=== PATIENT | female | born 1955 | race Caucasian/White ===

== ENCOUNTER 2021-01-27 07:41 | Outpatient (REF) | payer OTHER, SELFPAY ==
[2021-01-27 07:58] LABS: COVID-19 Test Negative (Negative)
== END 2021-01-27 07:42 | disposition home or self-care (01) ==
LOC: HO.LAB 07:41
PROVIDERS: Visit Provider Internal Medicine
DX: Z20.822 Contact with and (suspected) exposure to COVID-19 (principal)
CPT/HCPCS: 36415; 87635; C9803

== ENCOUNTER 2021-08-19 06:33 | Day surgery (SDC) | payer OTHER, SELFPAY ==
[2021-08-12 13:56] VITALS: BMI 24.1
--- NOTE | 2021-08-18 09:36 | HO.ANESPROP2 ---
Documented by User: Yohana Blanco NP 08/18/21 09:37 HPI - Anesthesia Eval Consult details Narrative: 65yo F for Upper Endoscopy PMFSH Past Medical History Medical History Arthritis COVID-19 vaccine series completed Dysphagia GERD (gastroesophageal reflux disease) Peptic ulcer Surgical History Surgical History H/O colonoscopy History of esophagogastroduodenoscopy (EGD) History of Lindsay fundoplication Hx of cosmetic surgery Hx of total hysterectomy Social History Social History Are you a primary customer care voice consultant to a significant other at home: No Do you presently have visiting nurse or other home services: No Patient Tobacco Use Status: Former Tobacco user Quit Date: age 40's Tobacco use type: Cigarette Years Smoked: 30 Use of substances other than those prescribed or required for medical reasons: No Have you been hit, kicked, punched, or otherwise hurt by someone within the past year? If so, by whom?: No Are you DNR?: No Advance Directives Information Provided: Yes (as above noted) Advance Directives on File: No Recently lost weight without trying: No Eating poorly because of decreased appetite: No Nutrition Risks: No Nutritional Risk Poor oral hygiene: No (missing teeth-upper & lower) Meds Allergies Allergy/AdvReac Type Severity Reaction Status Date / Time No Known Allergies Allergy Verified 08/19/21 06:40 Home Medications Medication Instructions Recorded Confirmed Last Taken Type bupropion HCl 150 mg 24 hr tablet, 150 mg PO QAM 08/12/21 08/12/21 Unknown History extended release estradiol 0.075 mg/24 hr 1 patch TOPICAL 2XW 08/12/21 08/12/21 Unknown History semiweekly transdermal patch omeprazole 40 mg capsule,delayed 1 cap PO BID 08/12/21 08/12/21 Unknown History release Exam Exam Date and Time: August 18, 2021 0936 Height,Weight and Vital Signs: Height 5 ft 2 in Weight 59.874 kg Assessment and Plan Assessment Anesthesia Assessment: Chart Reviewed Documented by User: Telma Haley MD 08/19/21 07:46 [facility] Past Medical History Medical History Arthritis COVID-19 vaccine series completed Dysphagia GERD (gastroesophageal reflux disease) Peptic ulcer Surgical History Surgical History H/O colonoscopy History of esophagogastroduodenoscopy (EGD) History of Lindsay fundoplication Hx of cosmetic surgery Hx of total hysterectomy History of Problems with Anesthesia: No Social History Social History Are you a primary customer care voice consultant to a significant other at home: No Do you presently have visiting nurse or other home services: No Patient Tobacco Use Status: Former Tobacco user Quit Date: age 41's Tobacco use type: Cigarette Years Smoked: 30 Use of substances other than those prescribed or required for medical reasons: No Have you been hit, kicked, punched, or otherwise hurt by someone within the past year? If so, by whom?: No Are you DNR?: No Advance Directives Information Provided: Yes (as above noted) Advance Directives on File: No Recently lost weight without trying: No Eating poorly because of decreased appetite: No Nutrition Risks: No Nutritional Risk Poor oral hygiene: No (missing teeth-upper & lower) Meds Allergies Allergy/AdvReac Type Severity Reaction Status Date / Time No Known Allergies Allergy Verified 08/19/21 06:40 Home Medications Medication Instructions Recorded Confirmed Last Taken Type bupropion HCl 150 mg 24 hr tablet, 150 mg PO QAM 08/12/21 08/12/21 Unknown History extended release estradiol 0.075 mg/24 hr 1 patch TOPICAL 2XW 08/12/21 08/12/21 Unknown History semiweekly transdermal patch omeprazole 40 mg capsule,delayed 1 cap PO BID 08/12/21 08/12/21 Unknown History release Exam Airway Mallampati Class: II TM Dist: >3cm Neck ROM: Full Heart: RRR Lungs: CTA Assessment and Plan Assessment Anesthesia Assessment: Anesthesia Plan Discussed Final Anesthetic Review History of Problems with Anesthesia: No NPO: Yes ASA Class: II Final Preanesthetic Review: Meds/Allgs Chart Reviewed, Consent Obtained/Reviewed and Anes Risks/Benef Reviewed Patient Risk: Low Procedure Risk: Intermediate Anesthetic Plan Anesthetic Plan: MAC: Disposition: Standard PACU
[2021-08-19 06:42] VITALS: BP 115/58; PULSE 63; RESP 15; TEMP 36.8; O2SAT 97
[2021-08-19] MEDS: Lactated Ringers 1,000 ML 100 ML IVCONT (06:57)
--- NOTE | 2021-08-19 07:26 | MHC.SHP ---
Pre-Procedural Eval Section A Date of Service: 08/19/21 Section B Chief Complaint: GERD, Dysphagia, Details of Present Illness: see h&p no changes Relevant Family History (Specify if Yes): No Relevant Social History: None Present Medications: see Short Stay Collaborative assessment Medical History: No relevant PMH History of Previous Operations: No relevant previous surgery Allergies: Allergies Allergy/AdvReac Type Severity Reaction Status Date / Time No Known Allergies Allergy Verified 08/19/21 06:40 Review of Systems Sugical H&P ROS: Negative: Constitution, Cardiovascular, Respiratory, Neurological, Psychiatric, Hem-Onc, Allergic/Immunologic, Gastrointestinal, Genitourinary, Musculoskeletal, Integumentary, Endocrine and Eyes/Ears/Nose/Throat Exam Surgical H&P Exam: Normal: HEENT, Normal: Heart, Normal: Lungs, Normal: Extremities, Normal: Abdomen, Normal: Skin and Normal: Neurological Plan I have reviewed the history and physical and performed a pertinent physical examination on my patient. No changes have occurred unless specified.
--- NOTE | 2021-08-19 07:44 | P.BOP_ITS ---
Brief Operative Note Date of Service: 08/19/21 Pre-op diagnosis: dysphagia,gerd Post-op diagnosis: same (hiatal hernia) Procedure: egd Surgeon: Clifton Hankins Anesthesia: MAC Was an Feeder Tender used for this Procedure?: No Estimated blood loss (mL): 2 Pathology: other (bxs antrum egj esophagus 25 cm)
[2021-08-19 07:46] VITALS: BP 84/47; PULSE 66; RESP 16; TEMP 36.2; O2SAT 98
[2021-08-19 08:01] VITALS: BP 112/72; PULSE 63; RESP 17; TEMP 36.2; O2SAT 96
--- NOTE | 2021-08-19 08:18 | OP_ITS ---
SURGEON: Clifton Hankins MD INDICATIONS: Dysphagia and gastroesophageal reflux disease. PREOPERATIVE DIAGNOSIS: POSTOPERATIVE DIAGNOSIS: PROCEDURE PERFORMED: Upper endoscopy with biopsy. ESTIMATED BLOOD LOSS: COMPLICATIONS: ANESTHESIA: ASSISTANTS: SPECIMENS: MEDICATIONS: Monitored anesthesia care. DESCRIPTION OF PROCEDURE: History and physical performed. The risks and benefits of the procedure were explained to the patient. Informed consent was obtained. The patient was placed in the left lateral decubitus position. The Olympus video gastroscope was introduced into the esophagus, stomach, and duodenum. Examination was performed and the scope was removed. She tolerated the procedure well and was taken to recovery area in stable condition. FINDINGS: Esophagus: The esophagus had a sigmoid appearance to it. There was no stricture. Biopsies were obtained from the EG junction and from 25 cm. No esophagitis was identified. There was a moderate-sized hiatal hernia. Stomach: The stomach showed no evidence of masses or ulcers. Antral biopsies were obtained to evaluate for H pylori. There were benign-appearing gastric polyps in the body and fundus measuring less than 10 mm. Biopsies were obtained from two of the polyps. Duodenum: The bulb and second portion were normal. IMPRESSION: Hiatal hernia. RECOMMENDATION: Follow up the biopsy results. MD MARCELINO Ibarra/ERICK / [id number]
== END 2021-08-19 09:03 | disposition home or self-care (01) ==
PROVIDERS: PCP Internal Medicine; Visit Provider Internal Medicine Gastroenterology
PROC: 0DJ08ZZ Inspection of Upper Intestinal Tract, Via Natural or Artificial Opening Endoscopic (ICD-10-PCS; CPT 43235; principal; 2021-08-19 07:30)
DX: K21.9 Gastro-esophageal reflux disease without esophagitis (principal); R13.10 Dysphagia, unspecified; K44.9 Diaphragmatic hernia without obstruction or gangrene; Z83.71 Family history of colonic polyps; Z79.899 Other long term (current) drug therapy
CPT/HCPCS: 43239; 88305; 88342; J3010

== ENCOUNTER 2021-12-27 10:19 | Outpatient (REF) | payer OTHER, SELFPAY ==
[2021-12-27 11:35] LABS: Rheumatoid Factor < 15.0 IU/mL (<15.0)
[2021-12-27 11:50] LABS: Estimated Average Glucose 114 mg/dL; Hemoglobin A1c % 5.6 %
[2021-12-27 11:56] LABS: Erythrocyte Sedimentation Rate 7 MM/HR (0-20)
[2021-12-28 09:32] LABS: Lyme Abs Screen <0.90 index
== END 2021-12-27 10:20 | disposition home or self-care (01) ==
LOC: HO.LAB 10:19
PROVIDERS: PCP Internal Medicine; Visit Provider Internal Medicine
DX: M25.50 Pain in unspecified joint (principal); R07.81 Pleurodynia; M54.9 Dorsalgia, unspecified; M47.812 Spondylosis without myelopathy or radiculopathy, cervical region; R73.9 Hyperglycemia, unspecified
CPT/HCPCS: 36415; 83036; 85652; 86431; 86617; 86618

== ENCOUNTER → 2022-01-23 09:28 | Outpatient (BNVA) | payer OTHER, SELFPAY | PROVIDERS: PCP Internal Medicine; Visit Provider Internal Medicine Rheumatology ==

== ENCOUNTER 2022-04-07 15:47 | Outpatient (REF) | payer OTHER, SELFPAY ==
--- NOTE | ~2022-04-07 | CT_ITS ---
EXAMINATION: CT CHEST SCREENING CLINICAL INFORMATION: Smoking history COMPARISON: None. TECHNIQUE: Multidetector volumetric CT imaging of the chest is performed without contrast using low dose technique. Additional 2D coronal and sagittal reformatted images and axial 3D maximum intensity projection (MIP) images are generated on the CT workstation. This CT examination was performed using dose optimization techniques as appropriate, variously including the following: *Automated exposure control *Adjustment of mA and/or kV according to patient size (this includes techniques or standardized protocols for targeted exams where dose is matched to indication/reason for exam; i.e. extremities or head) *Use of iterative reconstruction technique DLP: 42 mGy-cm FINDINGS: LUNGS: There is a 2 mm calcified right upper lobe nodule axial image 96 series 5. There is a 2 mm calcified right upper lobe nodule axial image 224 series 5. No endobronchial or endotracheal lesions is seen. MEDIASTINUM: There is a large esophageal hernia. The mediastinum is otherwise normal. PLEURA: There is no pleural effusion. No pleural mass or thickening. AXILLA: No lymphadenopathy. UPPER ABDOMEN: Unremarkable OSSEOUS STRUCTURES: There are degenerative changes of the spine. CT/CT lung screening IMPRESSION: Small calcified pulmonary nodules. Large esophageal hernia. ASSESSMENT: Lung-RADS category 2: Benign RECOMMENDATION: Annual low-dose chest CT follow-up recommended
== END 2022-04-07 15:48 | disposition home or self-care (01) ==
LOC: HO.CT 15:47
PROVIDERS: PCP Internal Medicine; Visit Provider Physician Assistant Medical
DX: Z12.2 Encounter for screening for malignant neoplasm of respiratory organs (principal); Z87.891 Personal history of nicotine dependence
CPT/HCPCS: 71271; G0296

== ENCOUNTER 2022-06-14 14:26 | Outpatient (REF) | payer OTHER, SELFPAY ==
--- NOTE | ~2022-06-14 | MR_ITS ---
EXAMINATION: MR BRAIN WITHOUT CONTRAST CLINICAL INFORMATION: Complex seizures. COMPARISON: None available. TECHNIQUE: Multiplanar, multisequence imaging of the brain was performed without intravenous contrast. The patient declined contrast administration. FINDINGS: There is no acute infarction, mass, hemorrhage, or extra-axial collection. The ventricles, sulci, and basilar cisterns are normal in size and configuration. A few minimal nonspecific foci of T2/FLAIR hyperintensity are seen within the cerebral white matter. The hippocampi demonstrate normal size, signal, and morphology and appear symmetric. No cortical dysplasia is seen. No heterotopic sung matter is seen. The flow voids of the major intracranial arteries appear intact. The bones and extracranial soft tissues are unremarkable. Degenerative changes are seen within the upper cervical spine. There is severe disc height loss at C4-C5 with degenerative endplate changes. MR/MR head/brain wo con IMPRESSION: No mass or discrete epileptogenic nidus identified.
== END 2022-06-14 14:27 | disposition home or self-care (01) ==
LOC: HO.MRI 14:26
PROVIDERS: Visit Provider Psychiatry & Neurology Neurology
DX: G40.209 Localization-related (focal) (partial) symptomatic epilepsy and epileptic syndromes with complex partial seizures, not intractable, without status epilepticus (principal)
CPT/HCPCS: 70551

== ENCOUNTER 2022-07-25 15:40 | Outpatient (REF) | payer OTHER, SELFPAY ==
[2022-07-25 16:18] LABS: Carbon Monoxide Refer to POC result
[2022-07-25 16:23] LABS: Carbon Monoxide POC 1.9 %
[2022-07-25 16:25] LABS: MANUAL DIFF FLAG NO
[2022-07-25 17:10] LABS: Basophils Absolute Auto 0.1 X10*3/uL (0.0-0.2); Basophils Percent Auto 0.8 % (0-2); Eosinophils Absolute Auto 0.2 X10*3/uL (0.0-0.4); Eosinophils Percent Auto 3.1 % (0-4); Hematocrit 42.6 % (37.0-47.0); Hemoglobin 14.1 g/dl (12.0-16.0); Imm Gran Abs Auto 0.01 X10*3/uL (0.00-0.03); Imm Gran Pct Auto 0.2 % (0.0-0.4); Lymphocytes Percent Auto 30.7 % (20-40); Mean Corpuscular HGB Conc 33.1 g/dl (31.0-35.0); Mean Corpuscular Hemoglobin 29.9 pg (27.0-33.0); Mean Corpuscular Volume 90.3 fL (80.0-98.0); Mean Platelet Volume 12.6 fL (9.4-12.3); Monocytes Absolute Auto 0.4 X10*3/uL (0.1-1.2); Monocytes Percent Auto 6.7 % (2-11); Neutrophils Absolute Auto 3.8 x10*3/uL (2.0-8.3); Neutrophils Percent Auto 58.5 % (45-73); Platelet Count 173 X10*3/uL (160-400); Red Blood Count 4.72 X10*6/uL (4.20-5.50); White Blood Count 6.5 X10*3/uL (4.8-10.8)
[2022-07-25 17:30] LABS: Alanine Aminotransferase 14 U/L (0-31); Anion Gap 14 (12-20); Blood Urea Nitrogen 14 mg/dL (9-16); Calcium 9.5 mg/dL (8.4-10.2); Carbon Dioxide 24 mmol/L (22-29); Chloride 108 mmol/L (96-108); Estimated Glomerular Filt Rate 60; Glucose Random 114 mg/dL (60-115); Potassium 4.4 mmol/L (3.3-5.1); Rheumatoid Factor < 15.0 IU/mL (<15.0); Sodium 142 mmol/L (135-145)
[2022-07-25 17:52] LABS: TSH reflex Free T4 0.67 uIU/mL (0.32-4.0)
[2022-07-25 18:01] LABS: Erythrocyte Sedimentation Rate 5 MM/HR (0-20)
[2022-07-26 04:09] LABS: HIV AB/AG Nonreactive (Nonreactive); HIV Num 1 0.06 S/CO (0.00-0.99)
[2022-07-26 05:38] LABS: Estimated Average Glucose 108 mg/dL; Hemoglobin A1c % 5.4 %
[2022-07-27 19:47] LABS: Anti Nuclear Antibody Screen NEGATIVE (NEGATIVE)
== END 2022-07-25 15:41 | disposition home or self-care (01) ==
LOC: HO.LAB 15:40
PROVIDERS: PCP Internal Medicine; Visit Provider Internal Medicine
DX: J01.91 Acute recurrent sinusitis, unspecified (principal); R07.81 Pleurodynia; M54.9 Dorsalgia, unspecified; M47.812 Spondylosis without myelopathy or radiculopathy, cervical region; F41.9 Anxiety disorder, unspecified; R68.89 Other general symptoms and signs
CPT/HCPCS: 36415; 80048; 82375; 83036; 84443; 84460; 85025; 85652; 86038; 86039; 86140; 86431; 87389

== ENCOUNTER 2022-12-04 15:00 | Outpatient (RCR) | payer OTHER, SELFPAY ==
[2022-11-07 10:12] VITALS: BP 120/56; PULSE 60
== END 2023-01-10 13:44 | disposition home or self-care (01) ==
LOC: HO.PT 15:00
PROVIDERS: PCP Internal Medicine; Visit Provider Internal Medicine
DX: R42 Dizziness and giddiness (principal)
CPT/HCPCS: 95992; 97112; 97161

== ENCOUNTER 2023-01-26 08:45 | Outpatient (REF) | payer OTHER, SELFPAY ==
[2023-01-26 10:27] LABS: Estimated Average Glucose 111 mg/dL; Hemoglobin A1c % 5.5 %
[2023-01-26 10:44] LABS: Ethanol < 10 mg/dL
[2023-01-26 10:51] LABS: Free T4 (Free Thyroxine) 0.93 ng/dL (0.71-1.85); T4 Thyroxine 7.6 ug/dL (4.5-12.0); Thyroid Stimulating Hormone 1.58 uIU/mL (0.32-4.0)
[2023-01-26 11:06] LABS: Amphetamine Screen Urine Not Detected (Not Detect); Barbiturates, Urine Not Detected (Not Detect); Benzodiazepines Screen Urine Not Detected (Not Detect); Cannabinoid Screen Urine Not Detected (Not Detect); Cocaine Screen Urine Not Detected (Not Detect); Fentanyl, urine Not Detected (Not Detect); Opiate Screen Urine Not Detected (Not Detect); Phencyclidine Screen Urine Not Detected (Not Detect)
[2023-01-28 08:13] LABS: Triiodothyronine T3 Free 3.1 pg/mL (2.3-4.2); Triiodothyronine T3 Total 112 ng/dL (76-181)
[2023-01-29 18:14] LABS: Thyroglobulin Antibodies <1 IU/mL (< or = 1); Thyroid Peroxidase Antibodies 1 IU/mL (<9)
[2023-02-02 14:02] LABS: EDDP (Methadone Metabolite) negative; Methadone, Urine MS negative
[2023-02-14 07:49] LABS: Oxycodone Screen Urine NEGATIVE; Triiodothyronine T3 Reverse 12
== END 2023-01-26 08:46 | disposition home or self-care (01) ==
LOC: HO.LAB 08:45
PROVIDERS: PCP Internal Medicine; Visit Provider Internal Medicine
DX: Z02.83 Encounter for blood-alcohol and blood-drug test (principal); F33.0 Major depressive disorder, recurrent, mild; R73.9 Hyperglycemia, unspecified; M47.812 Spondylosis without myelopathy or radiculopathy, cervical region; Z79.891 Long term (current) use of opiate analgesic
CPT/HCPCS: 80307; 80358; 82077; 83036; 84436; 84439; 84443; 84480; 84481; 84482; 86376; 86800

== ENCOUNTER 2023-02-08 12:55 | Outpatient (REF) | payer OTHER, SELFPAY ==
--- NOTE | ~2023-02-08 | MM_ITS ---
EXAMINATION: BONE DENSITOMETRY CLINICAL INDICATION: Osteoporosis. COMPARISON: None (current study represents initial baseline exam). TECHNIQUE: Using a [employer] DXA System (software version: 13.1) manufactured by [employer], dual-energy x-ray absorptiometry was performed of the lumbar spine and left hip. The images are of good technical quality. Summary results are attached. FINDINGS: AP SPINE L1-L2 (excluding L3 and L4): The data of L1-L4 has been changed to exclude the L3 and L4 vertebral bodies, because degenerative changes at these levels may cause overestimation of lumbar spine density. BMD 1.107 g/cm2, Z-score 1.3, T-score -0.5, normal. LEFT FEMUR, NECK: BMD 0.656 g/cm2, Z-score -1.1, T-score -2.7, osteoporosis. LEFT FEMUR, TOTAL: BMD 0.610 g/cm2, Z-score -1.8, T-score -3.2, osteoporosis. IDENTIFIED RISK FACTORS: Early menopause, family history (parent hip fracture), bilateral oophorectomy, hysterectomy, secondary osteoporosis. HISTORY OF FRACTURE: None listed. MEDICATIONS: Multivitamin, vitamin D, ERT/SERMS. MM/XR DEXA axial skeleton IMPRESSION: 1. DIAGNOSIS: Osteoporosis based on the lowest T-score value of -3.2 in the total femur applying World Health Organization criteria. 2. 10-YEAR FRACTURE RISK PREDICTION, FRAX: According to the guidelines, FRAX calculation should only be performed on patients in the osteopenia bone density category. Therefore, FRAX was not performed on this patient. 3. Treatment Recommendations: NOF guidelines recommend consideration for treatment in postmenopausal women and men age 50 and older presenting with the following: -A hip or vertebral (clinical or morphometric) fracture. -T-score less than or equal to -2.5 at the femoral neck or spine after appropriate evaluation to exclude secondary causes. -Low bone mass at the hip or spine and a 10-year fracture probability by FRAX of greater than or equal to 3% for hip fracture or greater than or equal to 20% for major osteoporotic fracture based on the [place] adapted WHO algorithm. 4. Other Recommendations: All treatment decisions require clinical judgment and consideration of individual patient factors, including patient preferences, comorbidities, previous drug use, risk factors not captured in the FRAX model (e.g. frailty, falls, vitamin D deficiency, increased bone turnover, interval significant decline in bone density) and possible under or overestimation of fracture risk by FRAX. Additional medical evaluation for secondary cause of low bone mineral density may be appropriate. FUTURE SCAN RECOMMENDATION: People with diagnosed cases of osteoporosis or at high risk for fracture should have regular bone mineral density tests. For patients eligible for Medicare, routine testing is allowed once every 2 years. The testing frequency can be increased to one year for patients who have rapidly progressing disease, those who are receiving or discontinuing medical therapy to restore bone mass, or have additional risk factors.
== END 2023-02-08 12:56 | disposition home or self-care (01) ==
LOC: HO.MAMMO 12:55
PROVIDERS: Visit Provider Internal Medicine
DX: Z13.820 Encounter for screening for osteoporosis (principal); Z78.0 Asymptomatic menopausal state
CPT/HCPCS: 77080

== ENCOUNTER 2023-04-09 07:57 | Outpatient (REF) | payer OTHER, SELFPAY ==
--- NOTE | ~2023-04-09 | CT_ITS ---
EXAMINATION: CT CHEST SCREENING CLINICAL INFORMATION: 30 pack year history. Current smoker. COMPARISON: Previous chest CT March 2022 TECHNIQUE: Multidetector volumetric CT imaging of the chest is performed without contrast using low dose technique. Additional 2D coronal and sagittal reformatted images and axial 3D maximum intensity projection (MIP) images are generated on the CT workstation. This CT examination was performed using dose optimization techniques as appropriate, variously including the following: *Automated exposure control *Adjustment of mA and/or kV according to patient size (this includes techniques or standardized protocols for targeted exams where dose is matched to indication/reason for exam; i.e. extremities or head) *Use of iterative reconstruction technique DLP: 42 mGy-cm FINDINGS: LUNGS: Small 2 mm calcified pulmonary nodules are stable. No new pulmonary nodule. No endobronchial or endotracheal lesion. MEDIASTINUM: Large esophageal hernia. The mediastinum is otherwise normal. CORONARY ARTERY CALCIFICATION: None visualized on this study. PLEURA: There is no pleural effusion. No pleural mass or thickening. AXILLA: No lymphadenopathy. UPPER ABDOMEN: Unremarkable OSSEOUS STRUCTURES: Degenerative changes of the spine. CT/CT lung screening IMPRESSION: Stable small pulmonary nodules. Large esophageal hernia. ASSESSMENT: Lung-RADS category 2: Benign RECOMMENDATION: Annual low-dose chest CT follow-up recommended.
== END 2023-04-09 07:58 | disposition home or self-care (01) ==
LOC: HO.CT 07:57
PROVIDERS: PCP Internal Medicine; Visit Provider Physician Assistant Medical
DX: Z12.2 Encounter for screening for malignant neoplasm of respiratory organs (principal); Z87.891 Personal history of nicotine dependence
CPT/HCPCS: 71271

== ENCOUNTER 2023-08-16 09:57 | Outpatient (REF) | payer OTHER, SELFPAY ==
[2023-08-16 10:24] LABS: MANUAL DIFF FLAG NO
[2023-08-16 10:59] LABS: Basophils Absolute Auto 0.1 X10*3/uL (0.0-0.2); Basophils Percent Auto 0.8 % (0-2); Eosinophils Absolute Auto 0.2 X10*3/uL (0.0-0.4); Eosinophils Percent Auto 2.7 % (0-4); Hematocrit 45.5 % (37.0-47.0); Hemoglobin 14.9 g/dl (12.0-16.0); Imm Gran Abs Auto 0.02 X10*3/uL (0.00-0.03); Imm Gran Pct Auto 0.3 % (0.0-0.4); Lymphocytes Absolute Auto 2.1 X10*3/uL (1.2-4.9); Lymphocytes Percent Auto 33.4 % (20-40); Mean Corpuscular HGB Conc 32.7 g/dl (31.0-35.0); Mean Corpuscular Hemoglobin 29.9 pg (27.0-33.0); Mean Corpuscular Volume 91.2 fL (80.0-98.0); Mean Platelet Volume 12.5 fL (9.4-12.3); Monocytes Absolute Auto 0.5 X10*3/uL (0.1-1.2); Monocytes Percent Auto 8.6 % (2-11); Neutrophils Absolute Auto 3.4 x10*3/uL (2.0-8.3); Neutrophils Percent Auto 54.2 % (45-73); Platelet Count 171 X10*3/uL (160-400); Red Blood Count 4.99 X10*6/uL (4.20-5.50); Red Cell Distribution Width 12.8 % (11.0-16.0); White Blood Count 6.2 X10*3/uL (4.8-10.8)
[2023-08-16 11:00] LABS: INTERNATIONAL NORM RATIO 0.9 (0.9-1.1); Prothrombin Time 10.9 SEC (11.1-13.3)
[2023-08-16 11:38] LABS: Estimated Average Glucose 111 mg/dL; Hemoglobin A1c % 5.5 % (<6.0)
[2023-08-16 11:43] LABS: Alanine Aminotransferase 19 U/L (0-31); Anion Gap 13 (12-20); Aspartate Amino Transferase 22 U/L (5-31); Blood Urea Nitrogen 12 mg/dL (9-16); Calcium 9.7 mg/dL (8.4-10.2); Carbon Dioxide 25 mmol/L (22-29); Chloride 108 mmol/L (96-108); Estimated Glomerular Filt Rate > 60; Glucose Random 79 mg/dL (60-115); Potassium 4.7 mmol/L (3.3-5.1); Sodium 141 mmol/L (135-145)
[2023-08-16 12:00] LABS: Free T4 (Free Thyroxine) 0.98 ng/dL (0.71-1.85); Thyroid Stimulating Hormone 0.88 uIU/mL (0.32-4.0); Vitamin D 25-OH Total 82.9 ng/mL (>30)
== END 2023-08-16 09:58 | disposition home or self-care (01) ==
LOC: HO.LAB 09:57
PROVIDERS: PCP Internal Medicine; Visit Provider Internal Medicine
DX: R23.3 Spontaneous ecchymoses (principal); F33.0 Major depressive disorder, recurrent, mild; R73.9 Hyperglycemia, unspecified; M81.0 Age-related osteoporosis without current pathological fracture
CPT/HCPCS: 36415; 80048; 82306; 83036; 84439; 84443; 84450; 84460; 85025; 85610; 85730

== ENCOUNTER 2024-06-16 16:27 | Outpatient (REF) | payer OTHER, SELFPAY ==
--- NOTE | ~2024-06-16 | CT_ITS ---
EXAMINATION: CT LOW-DOSE SCREENING CHEST WITHOUT CONTRAST CLINICAL INFORMATION: Personal history of nicotine dependence. The patient has a 30 pack-year history of smoking, having quit 13 years ago. COMPARISON: CT chest 04/09/2023 and 04/07/2022. TECHNIQUE: Multidetector volumetric CT imaging of the chest is performed on a Siemens SOMATOM Definition scanner without contrast using low dose technique. Additional 2D coronal and sagittal reformatted images and axial 3D maximum intensity projection (MIP) images are generated on the CT workstation. This CT examination was performed using dose optimization techniques as appropriate, variously including the following: *Automated exposure control *Adjustment of mA and/or kV according to patient size (this includes techniques or standardized protocols for targeted exams where dose is matched to indication/reason for exam; i.e. extremities or head) *Use of iterative reconstruction technique TOTAL EXAM DLP: 73 mGy-cm. CTDIvol: 2.32 mGy. FINDINGS: PULMONARY NODULES: Small pulmonary nodules are unchanged, the largest which is perifissural measuring 3.5 mm in the left lower lobe consistent with a perifissural lymph node. Ricci images of all have been saved. No new, increasing-sized or concerning nodules seen. LUNGS: Lungs bilaterally symmetrically expanded. There is minimal emphysema. No effusion or pneumothorax. Central airways patent. MEDIASTINUM: No mediastinal, hilar or axillary adenopathy or free fluid collection. CORONARY ARTERY CALCIFICATION: None visualized on this study. THYROID GLAND: Unremarkable to the extent seen. CARDIOVASCULAR STRUCTURES: Aortic and heart size normal. No pericardial effusion. CHEST WALL/AXILLA: Unremarkable. UPPER ABDOMEN: Moderate-sized hiatal hernia is present. Included portions of the solid organs in the upper abdomen unremarkable on noncontrast imaging. A benign right upper pole 3.4 cm Bosniak class I renal cyst is noted which requires no additional imaging or follow up. No solid renal masses are seen. OSSEOUS STRUCTURES: Some mild degenerative changes are present in the spine. CT/CT lung screening IMPRESSION: 1. No evidence of pulmonary malignancy. 2. Incidental note made of minimal emphysema, moderate-sized hiatal hernia and benign right renal cyst. 3. Incidental findings (S category): No significant new incidental findings. ASSESSMENT: Lung-RADS Category 2: Benign appearance or behavior of nodules. N/A RECOMMENDATION: Continued routine annual low-dose CT lung screening in 1 year is recommended. An order for CT CHEST LOW DOSE CANCER SCREENING ([id number]) can be placed.
== END 2024-06-16 16:28 | disposition home or self-care (01) ==
LOC: HO.CT 16:27
PROVIDERS: PCP Internal Medicine; Visit Provider Physician Assistant Medical
DX: Z12.2 Encounter for screening for malignant neoplasm of respiratory organs (principal); Z87.891 Personal history of nicotine dependence
CPT/HCPCS: 71271

== ENCOUNTER 2024-07-22 09:47 | Outpatient (REF) | payer OTHER, SELFPAY ==
--- NOTE | 2024-07-22 11:44 | PFT_ITS ---
Indication: COPD Spirometry [FEV1 to FVC 81%; FEV1 2.33 L; FVC 2.86 L. no significant response to bronchodilators noted. Maximum voluntary ventilation 134% predicted] Lung Volumes [Total lung capacity 94% predicted; residual volume 77% predicted; expiratory reserve volume 58% predicted] Diffusion Capacity [DLCO 85% predicted] Comparisons [None] Interpretation [No obstructive nor restrictive ventilatory defects identified. No significant response to bronchodilators noted. Normal maximum voluntary ventilation. Normal lung volumes. Normal diffusing capacity. If asthma is in differential methacholine challenge may be helpful in assessing for hyperactive airways. Otherwise correlation warranted.] MTDD
== END 2024-07-22 09:48 | disposition home or self-care (01) ==
LOC: HO.RESP 09:47
PROVIDERS: PCP Internal Medicine; Visit Provider Internal Medicine Pulmonary Disease
DX: Z87.891 Personal history of nicotine dependence (principal)
CPT/HCPCS: 94010; 94640; 94727; 94729

== ENCOUNTER → 2024-07-22 11:44 | Outpatient (BNV) | payer OTHER, SELFPAY | PROVIDERS: PCP Internal Medicine; Visit Provider Hospitalist | DX: J44.9 Chronic obstructive pulmonary disease, unspecified (principal); Z87.891 Personal history of nicotine dependence | CPT/HCPCS: 94060; 94727; 94729 ==

== ENCOUNTER 2024-11-04 07:31 | Outpatient (REF) | payer OTHER, SELFPAY ==
[2024-11-04 09:15] LABS: Amphetamine Screen Urine Not Detected (Not Detect); Barbiturates, Urine Not Detected (Not Detect); Cannabinoid Screen Urine Not Detected (Not Detect); Cocaine Screen Urine Not Detected (Not Detect); Methadone Screen, Urine Not Detected (Not Detect); Opiate Screen Urine Not Detected (Not Detect); Oxycodone Screen Urine Positive (Not Detect)
[2024-11-04 09:26] LABS: Alanine Aminotransferase 25 U/L (0-31); Anion Gap 11 (12-20); Aspartate Amino Transferase 23 U/L (5-31); Blood Urea Nitrogen 16 mg/dL (9-16); Calcium 9.6 mg/dL (8.4-10.2); Carbon Dioxide 29 mmol/L (22-29); Chloride 102 mmol/L (96-108); Cholesterol 242 mg/dL (<200); Estimated Glomerular Filt Rate 51; Glucose Random 105 mg/dL (60-115); HDL Cholesterol 55 mg/dL (>40); LDL Cholesterol Calculated 153 mg/dL (<100); Potassium 3.6 mmol/L (3.3-5.1); Sodium 138 mmol/L (135-145); Triglycerides 171 mg/dL (<150)
[2024-11-07 08:59] LABS: Alphahydroxymidazolam,GCMS Ur NEGATIVE; Alphahydroxytriazolam, GCMS Ur NEGATIVE; Alprazolam, GCMS Urine NEGATIVE; Aminoclonazepam, GCMS Urine NEGATIVE; Flurazepam Metabolite,GCMS Ur NEGATIVE; Lorazepam GCMS Urine NEGATIVE; Nordiazepam, GCMS Urine NEGATIVE; Oxazepam, GCMS Urine NEGATIVE; Temazepam, GCMS Urine NEGATIVE
== END 2024-11-04 07:32 | disposition home or self-care (01) ==
LOC: HO.LAB 07:31
PROVIDERS: PCP Internal Medicine; Visit Provider Internal Medicine
DX: M47.812 Spondylosis without myelopathy or radiculopathy, cervical region (principal); Z51.81 Encounter for therapeutic drug level monitoring
CPT/HCPCS: 80048; 80061; 80307; 80346; 84443; 84450; 84460

== ENCOUNTER 2025-05-15 09:22 | Outpatient (REF) | payer OTHER, SELFPAY ==
--- NOTE | ~2025-05-15 | US_ITS ---
EXAMINATION: US TRIPLEX LOWER EXTREMITY, RIGHT CLINICAL INFORMATION: Edema, right lower extremity. COMPARISON: None available. TECHNIQUE: Color-flow triplex imaging with spectral analysis and compression Doppler were performed on the right lower extremity. FINDINGS: Respiratory variation, normal compression and augmented flow are demonstrated in the interrogated right common femoral vein, superficial femoral vein, profunda femoral vein, popliteal vein and midcalf peroneal and posterior tibial venous segments. There is no Johnson's cyst. Edema pattern more pronounced in the popliteal fossa. US/US venous duplex LE RT IMPRESSION: No acute deep venous thrombosis interrogated veins, right lower extremity. Negative for DVT. Electronically signed by: Imtiaz Hassan MD 05/15/2025 10:05 AM EDT
--- OUTSIDE RECORDS SUMMARY | 2025-05-15 09:41 | XMS_ITS | Patient Health Record ---
Author Organization [facility] Address [address] [place] [id number] Care Team Providers Care Food Service Clerk Name Role Phone Azeem Sierra Primary Care Provider Unavailab Clifton Reyes Jr Unavailable [phone] Allergies No Known Allergies Reason For Referral No Information Medications Medication SIG (Take, Route, Frequency, Duration) Notes Start Date End Date Status Neuriva - as directed Orally a s directed Active Estradiol 0.075 MG/24HR Transdermal for 84 Active MiraLax (colon prep) 8.3 ounce ((238) grams mixed with Gatorade or Crystal Light orally begin at 5:00 p.m. the day before the procedure for 1 day 07/06/2021 Active Omeprazole 40 MG Oral for 90 A ctive Linzess 145 MCG Oral for 90 Ac tive Multivitamin Adult - 1 tablet Orally Onc e a day for 30 day(s) Active buPROPion HCl ER (XL) 300 MG Oral for 90 Active Immunizations Vaccine Route Administration Date Status Comme nts Influenza Unknown 07/27/2020 Administered Social History Tobacco Use: Social History Observation Description Date Details (start date - stop date) Former Smoker NA - NA Tobacco Use/Smoking Question Answer Notes Patient is a former smoker How long has it been since you last smoked? > 10 years Alcohol Screen Question Answer Notes Did you have a drink containing alcohol in the p ast year? No Points 0 Interpretation Negative Problems Problem Type SNOMED Code ICD Code Onset Dates Problem Status W/U Status Risk Notes Problem Dysphagia (62397538) Dysphagia (R13.10) Active confirmed Problem Gastroesophageal reflux disease (786617947) Gastroesophageal reflux disease (K21.9) Active confirmed Problem 632798141 Gastroesophageal reflux disease without esophagitis (K21.9) Active confirmed Problem 25556743 Dysphagia, unspecified type (R13.10) Active confirmed Problem 776104327 FH: colon polyps (Z83.71) Active confirmed Plan Of Treatment Future Test Test Name Order Date UPPER GI ENDOSCOPY 07/06/2021 COLONOSCOPY 07/06/2021 Insurance Providers Payer Name Payer Address Payer Phone Subscriber Number Group Number Insured Name Patient Relationship to Insured Coverage Start Date Coverage End Date [employer] [place] [address] [address] [place] [address] [id number] MERRILL MONTOYA Self - patient is the insured Medical (General) History Medical History History ICD Code Gastroesophageal reflux disease arthritis in neck Upper endoscopy , status post f undoplication Colonoscopy 12/10/15, five-ye ar followup because of family history of colon polyps. Depression Irritable bowel syndrome with constipati on Surgical History Surgery Date(Month/Year) Lindsay fundoplication 2011 Abdominoplasty 2009 Reduction mammoplasty 1988 hysterectomy, total 2000
== END 2025-05-15 09:23 | disposition home or self-care (01) ==
LOC: HO.US 09:22
PROVIDERS: Visit Provider Internal Medicine
DX: R60.0 Localized edema (principal)
CPT/HCPCS: 93971

== ENCOUNTER → 2025-05-15 09:47 | Outpatient (BNV) | payer OTHER, SELFPAY | PROVIDERS: Visit Provider Radiology Diagnostic Radiology | DX: R60.0 Localized edema (principal) | CPT/HCPCS: 93971 ==

== ENCOUNTER 2025-07-08 07:36 | Outpatient (REF) | payer OTHER, SELFPAY ==
--- NOTE | ~2025-07-08 | CT_ITS ---
EXAMINATION: CT LUNG SCREENING HISTORY: Z87.891 - Personal history of nicotine dependence TECHNIQUE: Low dose axial images were obtained from the sternal notch to upper abdomen without IV contrast per standard departmental protocol. Sagittal and coronal reformatted images were also obtained and reviewed. One or more of the following techniques was used for dose reduction: Automated exposure control, adjustment of the mA and/or kV according to patient size, use of iterative reconstruction technique. DLP: 42 mGy-cm COMPARISON: Comparison is made with the prior examination dated 06/14/2024. FINDINGS: Lung nodules: Again seen are scattered 2-3 mm nodules in the right upper lobe (series 4, images 29 and 47), and in the right lower lobe (series 4, images 53 and 68). No new pulmonary nodules are identified. Emphysema: none Coronary Calcification: none Aortic Arch Calcification: none Potentially Significant Incidentals : CT upper abdomen below. Additional Chest Findings: There is no pleural or pericardial effusion. No mediastinal or axillary lymphadenopathy is identified. There is a large hiatal hernia. Visualized upper abdomen: The visualized portions of the liver, spleen, and adrenals have an unremarkable unenhanced appearance. There is a partially visualized 4.5 cm cystic right renal lesion which demonstrates calcifications. CT/CT lung screening IMPRESSION: 1. No suspicious pulmonary nodules are identified. 2. Partially visualized 4.5 cm right renal cyst demonstrating calcifications. Ultrasound correlation is recommended. LUNG-RADS ASSESSMENT: Lung-RADS 2: Benign MANAGEMENT: Continue annual screening with LDCT in 12 months Category S: S Electronically signed by: Waldemar Edwards MD 07/08/2025 08:17 AM EDT
--- OUTSIDE RECORDS SUMMARY | 2025-07-08 07:38 | XMS_ITS | Patient Health Record ---
[facility] Address [address] [place] [address] Care Team Providers Care Marine Service Station Attendant Name Role Phone Rigo MORALES, Azeem Primary Care Provider Emelyn Dangelo Unavailable [phone] Allergies No Known Allergies Reason For Referral No Information Medications Medication SIG (Take, Route, Frequency, Duration) Notes Start Date End Date Status buPROPion HCl ER (XL) Active Neuriva Active Multivitamin Active Omeprazole 40 MG 1 capsule 30 minutes before morning meal Orally Once a day; Duration: 30 day(s) Active oxyCODONE-Acetaminophen 5-325 MG 1 tablet as needed Orally every 6 hrs Active Social History Tobacco Use: Social History Observation Description Date Details (start date - stop date) Former Smoker NA - NA Tobacco Use/Smoking Question Answer Notes Are you a: former smoker Additional Findings: Tobacco Non-User Current no n-smoker Alcohol Screen Question Answer Notes Did you have a drink containing alcohol in the p ast year? No Points 0 Interpretation Negative Tobacco use other than smoking: Question Answer Notes Are you an other tobacco user? No Problems Problem Type SNOMED Code ICD Code Onset Dates Problem Status W/U Status Risk Notes Problem Contracture of joint of right foot (disorder) (033382873893358) Contracture , right foot (M24.574) Active confirmed Problem Acquired hallux valgus (49501213) Hallux valgus (acquired), right foot (M20.11) Active confirmed Problem Acquired hammer toe of right foot (9853761137638981 ) Hammer toe of right foot (M20.41) Active confirmed Problem Acquired hammer toe of left foot (2803216478855303 ) Hammer toe of left foot (M20.42) Active confirmed Plan Of Treatment Pending Test Test Name Order Date X ray : Foot, right 3V 04/03/2023 Insurance Providers Payer Name Payer Address Payer Phone Subscriber Number Group Number Insured Name Patient Relationship to Insured Coverage Start Date Coverage End Date [employer] [address] [address] [place] [address] [id number] Josie Zheng Self - patient is the insured Medical (General) History Medical History History ICD Code Measles Mumps Chicken pox Surgical History Surgery Date(Month/Year) LILI/BSO 2001 Lindsay Fundeplication 2014
--- OUTSIDE RECORDS SUMMARY | 2025-07-08 07:38 | XMS_ITS | Patient Health Record ---
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 Role Phone Azeem Sierra Primary Care Provider Unavailab Clifton Reyes Jr Unavailable Allergies No Known Allergies Reason For Referral [...] Status W/U Status Risk Notes Problem Dysphagia (63597586) Dysphagia (R13.10) Active confirmed Problem Gastroesophageal reflux disease (164898429) Gastroesophageal reflux disease (K21.9) Active confirmed Problem [id number] Gastroesophageal reflux disease without esophagitis (K21.9) Active confirmed Problem 70849288 Dysphagia, unspecified type (R13.10) Active confirmed Problem 947545757 FH: colon polyps (Z83.71) Active confirmed Plan Of Treatment Future Test Test Name Order Date UPPER GI ENDOSCOPY 07/06/2021 COLONOSCOPY 07/06/2021 Insurance Providers Payer Name Payer Address Payer Phone Subscriber Number Group Number Insured Name Patient Relationship to Insured Coverage Start Date Coverage End Date [employer] [place] [address] [address] [place] [address] [id number] MERRILL MONTOYA Self - patient is [...]
== END 2025-07-08 07:37 | disposition home or self-care (01) ==
LOC: HO.CT 07:36
PROVIDERS: PCP Internal Medicine; Visit Provider Physician Assistant Medical
DX: Z12.2 Encounter for screening for malignant neoplasm of respiratory organs (principal); Z87.891 Personal history of nicotine dependence
CPT/HCPCS: 71271

== ENCOUNTER → 2025-07-08 07:37 | Outpatient (BNV) | payer OTHER, SELFPAY | PROVIDERS: PCP Internal Medicine; Visit Provider Radiology Diagnostic Radiology | DX: Z87.891 Personal history of nicotine dependence (principal) | CPT/HCPCS: 71271 ==

== ENCOUNTER 2025-08-04 15:29 | Outpatient (REF) | payer OTHER, SELFPAY ==
--- NOTE | ~2025-08-04 | US_ITS ---
EXAMINATION: US RETROPERITONEAL COMPLETE (RENAL) CLINICAL INFORMATION: Renal cyst. COMPARISON: None available. TECHNIQUE: Real-time imaging of the kidneys and bladder. FINDINGS: RIGHT KIDNEY: 10 x 4 x 5 cm (SAG x AP x TRV). Normal echotexture normal renal cortical thickness. No hydronephrosis. There is a 4.6 cm exophytic anechoic lesion, upper pole, without septations or flow on color Doppler interrogation. LEFT KIDNEY: 9 x 5 x 4 cm (SAG x AP x TRV). Normal echotexture. Normal renal cortical thickness . No hydronephrosis. No gross solid or cystic lesion. BLADDER: Fluid-filled. Bilateral ureteral jets are demonstrated. Prevoid bladder volume is 164 mL. Postvoid bladder volume is 15 mL. US/US retroperitoneal comp IMPRESSION: No hydronephrosis. 4.6 cm exophytic cyst, right kidney. 15 cc of residual urine in a post void image.. Electronically signed by: Imtiaz Hassan MD 08/04/2025 03:59 PM EDT
--- OUTSIDE RECORDS SUMMARY | 2025-08-04 17:41 | XMS_ITS | Patient Health Record ---
Author Organization [facility] Address [address] [place] [address] Care Team Providers Care Podiatric Assistant Name Role Phone Rigo MORALES, Azeem Primary Care Provider Emelyn Dangelo Unavailable [phone] Allergies No Known Allergies Reason For Referral [...] Contracture of joint of right foot (disorder) ([id number]) Contracture , right foot (M24.574) Active confirmed Problem Acquired hallux valgus (04540849) Hallux valgus (acquired), right foot (M20.11) Active confirmed Problem Acquired hammer toe of right foot ([id number] ) Hammer toe of right foot (M20.41) Active confirmed Problem Acquired hammer toe of left foot (2669037114977160 ) Hammer toe of left foot (M20.42) Active confirmed Plan Of Treatment Pending Test Test Name Order Date X ray : Foot, right 3V 04/03/2023 Insurance Providers Payer Name Payer Address Payer Phone Subscriber Number Group Number Insured Name Patient Relationship to Insured Coverage Start Date Coverage End Date [employer] Benefits [address] [address] [place] [address] [id number] Josie Zheng Self - patient is the insured Medical (General) History Medical History History ICD Code Measles Mumps Chicken pox Surgical History Surgery Date(Month/Year) LILI/BSO 2001 Lindsay Fundeplication 2014
--- OUTSIDE RECORDS SUMMARY | 2025-08-04 17:41 | XMS_ITS | Patient Health Record ---
Author Organization [facility] Address [address] [place] [id number] Care Team Providers Care Data Coordinator Name Role Phone Azeem Sierra Primary Care [...] Status W/U Status Risk Notes Problem Dysphagia (60924251) Dysphagia (R13.10) Active confirmed Problem Gastroesophageal reflux disease (884001821) Gastroesophageal reflux disease (K21.9) Active confirmed Problem 696315569 Gastroesophageal reflux disease without esophagitis (K21.9) Active confirmed Problem 35616896 Dysphagia, unspecified type (R13.10) Active confirmed Problem 717826061 FH: colon polyps (Z83.71) Active confirmed Plan Of Treatment Future Test Test Name Order Date UPPER GI ENDOSCOPY 07/06/2021 COLONOSCOPY 07/06/2021 Insurance Providers Payer Name Payer Address Payer Phone Subscriber Number Group Number Insured Name Patient Relationship to Insured Coverage Start Date Coverage End Date [employer] [place] [address] [address] [place] [address] [id number] MERRILL MONTOYA Self - patient is [...]
== END 2025-08-04 15:30 | disposition home or self-care (01) ==
LOC: HO.US 15:29
PROVIDERS: PCP Internal Medicine; Visit Provider Internal Medicine
DX: N28.1 Cyst of kidney, acquired (principal)
CPT/HCPCS: 76770

== ENCOUNTER → 2025-08-04 15:38 | Outpatient (BNV) | payer OTHER, SELFPAY | PROVIDERS: PCP Internal Medicine; Visit Provider Radiology Diagnostic Radiology | DX: N28.1 Cyst of kidney, acquired (principal) | CPT/HCPCS: 76770 ==

== ENCOUNTER 2025-11-03 06:58 | Day surgery (SDC) | payer OTHER, SELFPAY ==
--- OUTSIDE RECORDS SUMMARY | 2025-10-10 23:59 | XMS_ITS | Continuity of Care Document ---
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 Name Role Phone Rigo MORALES, Azeem Primary Care Physician Encounter [facility] Date(s): 09/10/25 - 10/10/25 [facility] [address] [place], [place] [address] Encounter Type: Triage Allergies, Adverse Reactions, Alerts No Known Allergies Immunizations Given and Recorded Vaccine Date Status Refusal Reason influenza virus vaccine, inactivated 08/29/24 Abhishek rded influenza virus vaccine, inactivated 10/16/23 Abhishek rded influenza virus vaccine, inactivated 09/07/22 Abhishek rded influenza virus vaccine, inactivated 09/08/21 Abhishek rded influenza virus vaccine, inactivated 09/22/20 Abhishek rded influenza virus vaccine, inactivated 09/10/19 Abhishek rded influenza virus vaccine, inactivated 09/11/18 Abhishek rded influenza virus vaccine, inactivated 09/20/17 Abhishek rded influenza virus vaccine, inactivated 09/18/16 Abhishek rded influenza virus vaccine, inactivated 1 09/24/15 Re corded influenza virus vaccine, inactivated 2 09/26/14 Gi aidan influenza virus vaccine, inactivated 3 07/27/13 Re corded influenza virus vaccine, inactivated 08/20/12 Give n influenza virus vaccine, inactivated 4 08/26/11 Gi aidan influenza virus vaccine, inactivated 09/29/10 Give n tetanus/diphtheria/pertussis, acel(Tdap) 5 01/19/23 Given pneumococcal 20-valent conjugate vaccine 6 01/19/23 Given [id number] 12y+ bivalent booster vax 08/29/22 Recorded SARS-CoV-2 mRNA ([id number]) vax 04/18/22 Recorded SARS-CoV-2 (COVID-19) mRNA BNT-162b2 vac 08/25/21 Recorded SARS-CoV-2 (COVID-19) mRNA BNT-162b2 vac 12/07/20 Recorded SARS-CoV-2 (COVID-19) mRNA BNT-162b2 vac 11/16/20 Recorded FluLaval (oldterm) 09/27/09 Given diphtheria-tetanus toxoids (DT) 7 09/29/08 Given Pneumococcal Poly (PPV23) (oldterm) 11/27/00 Given 1Result Comment: [11/12/2015] received at work 2Admin Note: done @ work 3Location History: work [facility] 4Admin Note: done @ work 5Result Comment: [id number] given w/out incident 6Result Comment: [id number] given to incident 7Admin Note: done @ [facility] Medications acetaminophen-oxyCODONE 325 mg-5 mg oral tablet 1, tablet, By Mouth, Every 6 hours, PRN, Dx: cervical radiculopathy M54.12 for 28 days, # 28 tablet, Refills 0, Tot. Refills 0, Acute, Pain, 11/05/25 4:01:00 PM EST, 10/08/25 4:01:00 PM EST, Route toPharmacy Electronically, [facility] Tablet, Partial fill upon patient request; ; may fill no sooner than 09/11/25, 156, cm, 07/06/25 15:10:00 EDT, Height, 60, kg, 07/06/25 14:51:00 EDT, Dry Weight Start Date: 10/08/25 Stop Date: 11/05/25 Status: Ordered Medication Dispense Status: Completed Quantity: 28.0 Unit: tablet Total Allowed Fills: 1 Fills Dispensed: 0 atorvastatin 10 mg oral tablet 1 tablet = 10 mg, By Mouth, Daily at bedtime, # 90 tablet, 3 Refills, Maintenance, 11/11/24 5:24:00PM EST, [facility], Partial fill upon patient request if the prescription is for a schedule II opioid drug., 158, cm, 10/31/24 8:36:00 EST, Height, 59, kg, 08/30/23 7:25:00 EDT, Dry Weight Start Date: 11/11/24 Stop Date: 11/06/25 Status: Ordered Medication Dispense Status: Completed Quantity: 90.0 Unit: tablet Total Allowed Fills: 4 Fills Dispensed: 0 buPROPion 300 mg/24 hours (XL) oral tablet, extended release See Instructions, TAKE 1 TABLET BY MOUTH DAILY, # 90 tablet, 3 Refills, Maintenance, 07/06/25 3:14:00 PM EDT, [facility], 156, cm, 07/06/25 15:10:00 EDT, Height, 60, kg, 07/06/25 14:51:00 EDT, Dry Weight Start Date: 07/06/25 Status: Ordered Medication Dispense Status: Completed Quantity: 90.0 Unit: tablet Total Allowed Fills: 4 Fills Dispensed: 0 Samira 0.075 mg/24 hours twice weekly transdermal film, extended release See Instructions, APPLY 1 PATCH TOPICALLY TWICE A WEEK DIRECTED, # 24 patch, 2 Refills, Maintenance, 02/26/25 7:23:00 AM EDT, [facility], 84, APPLY 1 PATCH TOPICALLY TWICE A WEEK DIRECTED, 158,cm, 10/31/24 8:36:00 EST, Height, 59, kg, 08/30/23 7:25:00 EDT, Dry Weight Start Date: 02/26/25 Status: Ordered Medication Dispense Status: Completed Quantity: 24.0 Unit: patch Total Allowed Fills: 1 Fills Dispensed: 0 Linzess 145 mcg oral capsule See Instructions, TAKE 1 CAPSULE BY MOUTH DAILY ON AN EMPTY STOMACH Approved:EOC:[id number]..12/04/2024 thru 12/03/2025, # 30 capsule, 7 Refills, Maintenance, 12/05/24 8:05:00 AM EST, [facility], 158, cm, 10/31/24 8:36:00 EST, Height, 59, kg, 08/30/23 7:25:00 EDT, Dry Weight Start Date: 12/05/24 Status: Ordered Medication Dispense Status: Completed Quantity: 30.0 Unit: capsule Total Allowed Fills: 8 Fills Dispensed: 0 losartan 25 mg oral tablet 25 mg, 1, tablet, By Mouth, Daily, # 7 tablet, Refills 0, Tot. Refills 0, Maintenance, 11/03/24 3:57:00 PM EST, Route to Pharmacy Electronically, [facility], replaces chlorthalidone, 158, cm, 10/31/24 8:36:00 EST, Height, 59, kg, 08/30/23 7:25:00 EDT, Dry Weight Start Date: 11/03/24 Stop Date: 11/10/24 Status: Ordered Medication Dispense Status: Completed Quantity: 7.0 Unit: tablet Total Allowed Fills: 1 Fills Dispensed: 0 lubiprostone 8 mcg oral capsule 1 capsule = 8 mcg, By Mouth, 2 times a day, # 60 capsule, 3 Refills, Maintenance, 11/30/24 4:54:00 PMEST, Capsule, [facility], Partial fill upon patient request if the prescription is for a scheduleII opioid drug., 158, cm, 10/31/24 8:36:00 EST, Height, 59, kg, 08/30/23 7:25:00 EDT, Dry Weight Start Date: 11/30/24 Stop Date: 03/30/25 Status: Ordered Medication Dispense Status: Completed Quantity: 60.0 Unit: capsule Total Allowed Fills: 4 Fills Dispensed: 0 Nasacort Allergy 24HR 55 mcg/inh nasal spray 2 sprays, Nares, Both, Daily, # 3 each, 2 Refills, Maintenance, 03/15/20 10:24:00 AM EDT, [id number], 2 sprays Nares, Both Daily,x90 days, 161.5, cm, 11/03/19 10:54:00 EST, Height Start Date: 03/15/20 Stop Date: 12/10/20 Status: Ordered Medication Dispense Status: Completed Quantity: 3.0 Unit: each Total Allowed Fills: 3 Fills Dispensed: 0 omeprazole 40 mg oral enteric coated capsule 1 capsule = 40 mg, By Mouth, Daily, for 90 days, 03/19: ins. will only cover 1 capsule daily, # 90 capsule, 4 Refills, Physician Stop 09/06/26 2:36:00 PM EDT, 06/13/25 2:36:00 PM EDT, [facility], change from BID to QD due to insurance preference, 158, cm, 10/31/24 8:36:00 EST, Height, 59, kg, 08/30/23 7:25:00 EDT, Dry Weight Start Date: 06/13/25 Stop Date: 09/06/26 Status: Ordered Medication Dispense Status: Completed Quantity: 90.0 Unit: capsule Total Allowed Fills: 5 Fills Dispensed: 0 Vivelle-Dot 0.075 mg/24 hours twice weekly transdermal film, extended release See Instructions, 1 patch Topically twice a week as directed., # 24 patch, 3 Refills, Maintenance, 03/20/24 12:03:00 PM EDT, Patch, [id number], 158, cm, 08/30/23 7:25:00 EDT, Height, 59, kg, 08/30/23 7:25:00 EDT, Dry Weight Start Date: 03/20/24 Status: Ordered Medication Dispense Status: Completed Quantity: 24.0 Unit: patch Total Allowed Fills: 4 Fills Dispensed: 0 Problem List Condition Confirmation Course Effective Dates Status H ealth Status Informant Allergic rhinitis Confirmed Active Brooke's esophagus Confirmed Active Carpal tunnel syndrome of left wrist Confirmed 05/09/13 Active Degenerative arthritis of cervical spine Confirmed Active Constipation Confirmed 02/06/11 Active Dysphagia Confirmed Active Family history of polyp of colon Confirmed Active FH: Alzheimer's disease (dad) Confirmed Active Family history of ankylosing spondylitis (mom) Confirmed Active FH: premature coronary heart disease (dad) Confirmed Active GERD (gastroesophageal reflux disease) Confirmed Active 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 Hyperglycemia Confirmed 2005 Active Hysterectomy Confirmed 2000 Active Insomnia Confirmed Active Irritable bowel syndrome (IBS) Confirmed Active Menopausal symptoms Confirmed Active Osteoporosis Confirmed 02/08/23 Active Release of right carpal tunnel for nerve decompression Confirmed 1983 Active S/P Lindsay fundoplication (without gastrostomy tube) procedure Confirmed 08/19/12 Active Social History Social History Type Response Smoking Status Former smoker entered on: 12/20/15 Sexual Orientation Self described orien tation: ; Straight or heterosexual Sex Sex Representation Female (finding) Patient Care team information Care Team Personnel Name: Azeem Sierra MD Position: S Physician - Primary Care Member Role: PCP Address: [address] [place] [address] [facility] [address] Telecom: Care Team Related Persons Name: LINDSAYKM Insurance Providers Guarantor name: MERRILL MONTOYA [facility] Information #: 1 Payer: BLUE [employer] PPO Payer Identifier: NA Member Number: [id number] Group Number: [id number] Subscriber Identifier: NA Relationship to Subscriber: self Coverage Type: BLUE CROSS/BLUE SHIELD Coverage Verification Date: NA Telecom: NA Address: NA
[2025-10-30 09:38] VITALS: BMI 23.2
[2025-11-03 07:08] VITALS: BMI 22.9
[2025-11-03 07:19] VITALS: BP 125/71; PULSE 69; RESP 16; TEMP 36.6; O2SAT 98
--- NOTE | 2025-11-03 07:22 | HO.ANESPROP2 ---
Documented by User: Vale Higgins NP 10/30/25 13:36 HPI - Anesthesia Eval Consult details Narrative: 70 yr old female for Upper Endoscopy and Colonoscopy [facility] Active Problems Active Problems: All Active Problems (Updated 10/30/25 @ 09:34 by Amalia Wong RN) Renal cyst, right (Acute) Cervical osteoarthritis (Acute) Multiple joint complaints (Acute) Osteoporosis (Acute) Personal history of nicotine dependence (Acute) Past Medical History Medical History (Updated 10/30/25 @ 09:34 by Amalia Wong RN) Osteoporosis Personal history of nicotine dependence Arthritis Peptic ulcer Dysphagia GERD (gastroesophageal reflux disease) Family History Family History (Updated 03/31/22 @ 10:58 by Kira Canales PA-C) Sister Colon polyps Mother HTN (hypertension) Father DM2 (diabetes mellitus, type 2) Heart disease Surgical History Surgical History (Updated 04/07/22 @ 15:44 by Kira Canales PA-C) History of rhinoplasty History of reduction mammoplasty (~1988) History of abdominoplasty (~2009) History of total hysterectomy (~1999) History of colonoscopy History of esophagogastroduodenoscopy (EGD) History of Lindsay fundoplication (~2011) History of Problems with Anesthesia: No Social History Social History (Updated 04/07/22 @ 15:48 by Kira Canales PA-C) Are you a primary care nurse rn to a significant other at home: No Do you presently have visiting nurse or other home services: No Patient Tobacco Use Status: Former Tobacco user Tobacco use type: Cigarette Years Smoked: (onset 16, 1/2-1ppd x 39yrs, 25PYH - quit 2010) Use of substances other than those prescribed or required for medical reasons: No Advance Directives: No Advance Directives Information Provided: Yes Meds Allergies Allergy/AdvReac Type Severity Reaction Status Date / Time No Known Allergies Allergy Verified 01/23/22 09:36 Home Medications ?Medication ?Instructions ?Recorded ?Confirmed ?Last Taken ?Type bupropion HCl 150 mg 24 hr tablet, 150 mg PO QAM 08/12/21 10/30/25 Unknown History extended release estradiol 0.075 mg/24 hr 1 patch topical 2XW 08/12/21 10/30/25 Unknown History semiweekly transdermal patch omeprazole 40 mg capsule,delayed 1 cap PO BID 08/12/21 11/03/25 11/03/25 History release ibuprofen 200 mg capsule 200 mg PO DAILY PRN 01/23/22 01/23/22 Unknown History naproxen sodium 220 mg tablet 220 mg PO DAILY PRN 01/23/22 01/23/22 Unknown History (Aleve) linaclotide 145 mcg capsule 145 mcg PO DAILY 10/30/25 10/30/25 Unknown History (Linzess) Exam Height,Weight and Vital Signs: Height 5 ft 4 in Weight 61.416 kg Assessment and Plan Final Anesthetic Review History of Problems with Anesthesia: No Documented by User: Elosia Melvin DO 11/03/25 07:25 [facility] Past Medical History Medical History (Updated 10/30/25 @ 09:34 by Amalia Wong RN) Osteoporosis Personal history of nicotine dependence Arthritis Peptic ulcer Dysphagia GERD (gastroesophageal reflux disease) Family History Family History (Updated 03/31/22 @ 10:58 by Kira Canales PA-C) Sister Colon polyps Mother HTN (hypertension) Father DM2 (diabetes mellitus, type 2) Heart disease Family history of problems with anesthesia: No Surgical History Surgical History (Updated 04/07/22 @ 15:44 by Kira Canales PA-C) History of rhinoplasty History of reduction mammoplasty (~1988) History of abdominoplasty (~2009) History of total hysterectomy (~1999) History of colonoscopy History of esophagogastroduodenoscopy (EGD) History of Lindsay fundoplication (~2011) History of Problems with Anesthesia: No Social History Social History (Updated 04/07/22 @ 15:48 by Kira Canales PA-C) Are you a primary care nurse rn to a significant other at home: No Do you presently have visiting nurse or other home services: No Patient Tobacco Use Status: Former Tobacco user Tobacco use type: Cigarette Years Smoked: (onset 16, 1/2-1ppd x 40yrs, 25PYH - quit 2010) Use of substances other than those prescribed or required for medical reasons: No Advance Directives: No Advance Directives Information Provided: Yes Meds Allergies Allergy/AdvReac Type Severity Reaction Status Date / Time No Known Allergies Allergy Verified 01/23/22 09:36 Home Medications ?Medication ?Instructions ?Recorded ?Confirmed ?Last Taken ?Type bupropion HCl 150 mg 24 hr tablet, 150 mg PO QAM 08/12/21 10/30/25 Unknown History extended release estradiol 0.075 mg/24 hr 1 patch topical 2XW 08/12/21 10/30/25 Unknown History semiweekly transdermal patch omeprazole 40 mg capsule,delayed 1 cap PO BID 08/12/21 11/03/25 11/03/25 History release ibuprofen 200 mg capsule 200 mg PO DAILY PRN 01/23/22 01/23/22 Unknown History naproxen sodium 220 mg tablet 220 mg PO DAILY PRN 01/23/22 01/23/22 Unknown History (Aleve) linaclotide 145 mcg capsule 145 mcg PO DAILY 10/30/25 10/30/25 Unknown History (Linzess) Exam Exam Date and Time: 11/03/25 0720 Height,Weight and Vital Signs: Height 5 ft 4 in Weight 61.416 kg Vital Signs Temperature 97.8 F 11/03/25 07:19 Pulse Rate 69 11/03/25 07:19 Respiratory Rate 16 11/03/25 07:19 Blood Pressure 125/71 11/03/25 07:19 Pulse Oximetry 98 11/03/25 07:19 Oxygen Delivery Method Room Air 11/03/25 07:19 Temperature 97.8 F 11/03/25 07:19 Pulse Rate 69 11/03/25 07:19 Respiratory Rate 16 11/03/25 07:19 Blood Pressure 125/71 11/03/25 07:19 Pulse Oximetry 98 11/03/25 07:19 Oxygen Delivery Method Room Air 11/03/25 07:19 Airway Mallampati Class: I TM Dist: >3cm Neck ROM: Full Heart: S1S2 Lungs: CTAB Assessment and Plan Assessment Anesthesia Assessment: Anesthesia Plan Discussed and Chart Reviewed Final Anesthetic Review Family History of Problems with Anesthesia: No History of Problems with Anesthesia: No NPO: Yes ASA Class: II Final Preanesthetic Review: No Changes in Pt Med Stat, Meds/Allgs Chart Reviewed, Consent Obtained/Reviewed and Anes Risks/Benef Reviewed Patient Risk: Low Procedure Risk: Low Anesthetic Plan Anesthetic Plan: MAC: and Agree w/ Assess. and Plan Disposition: Standard PACU
[2025-11-03] MEDS: Lactated Ringers 1,000 ML 100 ML IVCONT (07:25)
--- NOTE | 2025-11-03 07:33 | MHC.SHP ---
Pre-Procedural Eval Section A - 24 Hr Update-Section A only Date of Service: 11/03/25 Section B - Complete if H&P > 30 days Chief Complaint: screening,gerd,chest pain,dysphagia Details of Present Illness: see H&P no chnages Relevant Family History (Specify if Yes): No Relevant Social History: None Present Medications: see Short Stay Collaborative assessment Medical History: No relevant PMH History of Previous Operations: No relevant previous surgery Allergies: Allergies Allergy/AdvReac Type Severity Reaction Status Date / Time No Known Allergies Allergy Verified 01/23/22 09:36 Review of Systems Sugical H&P ROS: Negative: Constitution, Cardiovascular, Respiratory, Neurological, Psychiatric, Hem-Onc, Allergic/Immunologic, Gastrointestinal, Genitourinary, Musculoskeletal, Integumentary, Endocrine and Eyes/Ears/Nose/Throat Exam Surgical H&P Exam: Normal: HEENT, Normal: Heart, Normal: Lungs, Normal: Extremities, Normal: Abdomen, Normal: Skin and Normal: Neurological Plan Diagnosis/Plan: Unchanged I have reviewed the history and physical and performed a pertinent physical examination on my patient. No changes have occurred unless specified. Time Spent With Patient Time: Total time managing care of this patient today ____ minutes.
[2025-11-03 08:15] VITALS: BP 87/45; PULSE 70; RESP 12; TEMP 36.2; O2SAT 97
[2025-11-03 08:30] VITALS: BP 94/55; PULSE 64; RESP 16; O2SAT 96
--- NOTE | 2025-11-03 08:41 | OP_ITS ---
DATE OF SERVICE: 11/03/2025 SURGEON: Clifton Hankins MD INDICATIONS: Gastroesophageal reflux disease, dysphagia and chest pain as well as colon cancer screening. PREOPERATIVE DIAGNOSIS: POSTOPERATIVE DIAGNOSIS: PROCEDURE PERFORMED: Upper endoscopy with biopsy, colonoscopy to the terminal ileum with snare polypectomy and biopsy. ESTIMATED BLOOD LOSS: COMPLICATIONS: ANESTHESIA: Monitored anesthesia care. ASSISTANTS: SPECIMENS: DESCRIPTION OF PROCEDURE: History and physical was performed. The risks and benefits of the procedure were explained to the patient and informed consent was obtained. The patient was placed in the left lateral decubitus position. The Olympus video gastroscope was introduced into the esophagus, stomach, and duodenum. Examination was performed. The scope was removed. She was repositioned for colonoscopy. A digital rectal exam was performed and was found to be normal. The Olympus pediatric video colonoscope was introduced into the rectum and advanced to the cecum. The cecum was identified by transillumination, palpation, and identification of ileocecal valve. Examination was performed. The scope was removed. She tolerated the procedure well and was taken to recovery area in stable condition. FINDINGS: Upper endoscopy, esophagus, the esophagus showed a 3 cm hiatal hernia. There was no esophagitis. Biopsies were obtained from the EG junction and body of the esophagus. Stomach showed no evidence of masses or ulcers. Antral biopsies were obtained to evaluate for H pylori. Duodenum, the bulb and 2nd portion were normal. Colonoscopy, the terminal ileum was examined and appeared normal. The visualized colonic mucosa was normal. The quality of the prep was good. In the cecum was a 10 mm sessile polyp, which was removed with a snare and recovered via suction, at 45 cm was a less than 5 mm sessile polyp, which was removed with biopsy forceps. No other polyps were identified. Retroflexed examination showed some hypertrophic anal papillae. IMPRESSION: 1. Hiatal hernia. 2. Colon polyps. RECOMMENDATIONS: Follow up with the biopsy results. MD MARCELINO Ibarra/ERICK / [id number]
[2025-11-03 08:45] VITALS: BP 141/66; PULSE 56; RESP 18; TEMP 36.1; O2SAT 97
== END 2025-11-03 09:24 | disposition home or self-care (01) ==
PROVIDERS: PCP Internal Medicine; Visit Provider Internal Medicine Gastroenterology
PROC: (CPT 45385; principal; 2025-11-03 08:20)
DX: Z12.11 Encounter for screening for malignant neoplasm of colon (principal); Z83.719 Family history of colon polyps, unspecified; D12.0 Benign neoplasm of cecum; D12.5 Benign neoplasm of sigmoid colon; K62.89 Other specified diseases of anus and rectum; K58.1 Irritable bowel syndrome with constipation; R13.10 Dysphagia, unspecified; R07.9 Chest pain, unspecified; K21.9 Gastro-esophageal reflux disease without esophagitis; K44.9 Diaphragmatic hernia without obstruction or gangrene; M47.812 Spondylosis without myelopathy or radiculopathy, cervical region; F32.A Depression, unspecified; Z98.890 Other specified postprocedural states
CPT/HCPCS: 45385; 45380; 43239; 88305; 88313; 88342; J2003; J2704